=== PATIENT | female | born 1940 | race Caucasian/White ===

== ENCOUNTER 2020-01-11 09:42 | Inpatient (IN) | payer MEDICARE, OTHER ==
[~2020-01-11] VITALS: Ht 162.6 cm; Wt 51.2 kg
[2020-01-11] MEDS ORDERED: MORPHINE SULFATE 4 MG/ML, 1ML ONE ×2 (10:30→11:43)
[2020-01-11] MEDS ORDERED: ONDANSETRON 2MG/ML, 2ML ONE ×2 (10:30→19:20)
[2020-01-11] MEDS: MORPHINE SULFATE 4 MG/ML, 1ML IVPush PRN ×2 (10:42→11:49)
[2020-01-11] MEDS ORDERED: ONDANSETRON 2MG/ML, 2ML IVPush ONE (11:00)
[2020-01-11] MEDS ORDERED: SODIUM CHLORIDE FLUSH 10ML SYR IVF ONE (11:30)
--- NOTE | 2020-01-11 11:47 | NUR ---
TASK RN: PT BACK FROM XRAY. PLACED ON 2 L NC DUE TO LOW O2 DOWN TO 81%, NOW 96%.
[2020-01-11] MEDS ORDERED: ONDANSETRON 2MG/ML, 2ML IVPush PRN ×4 (12:00→22:00)
[2020-01-11] MEDS ORDERED: MORPHINE SULFATE 4 MG/ML, 1ML IVPush PRN (12:00)
[2020-01-11 12:19] LABS: BASOPHILS # (AUTO) 0.01 x10^3/uL (0-0.1); BASOPHILS % (AUTO) 0 % (0-1); EOSINOPHILS # (AUTO) 0.12 x10^3/uL (0-0.4); EOSINOPHILS % (AUTO) 1 % (1-7); LYMPHOCYTES # (AUTO) 0.89 x10^3/uL (1-3.4); LYMPHOCYTES % (AUTO) 8 % (22-44); MD NO; MEAN CORPUSCULAR HEMOGLOBIN 33.3 pg (27.0-34.8); MEAN CORPUSCULAR HGB CONC 33.5 g/dL (32.4-35.8); MEAN PLATELET VOLUME 8.1 fL (7.4-10.4); MONOCYTES # (AUTO) 0.43 x10^3/uL (0.2-0.8); MONOCYTES % (AUTO) 4 % (2-9); NEUTROPHILS # (AUTO) 9.86 x10^3/uL (1.8-6.8); NEUTROPHILS % (AUTO) 87 % (42-75); PLATELET COUNT 229 x10^3/uL (130-400); RED BLOOD COUNT 4.35 x10^6/uL (3.82-5.3)
[2020-01-11 12:25] LABS: PROTHROMBIN TIME 10.6 Seconds (9.6-11.5)
[2020-01-11 12:27] LABS: ALANINE AMINOTRANSFERASE 29 U/L (12-78); ALBUMIN 3.5 g/dL (3.4-5.0); ANION GAP 7 mmol/L (5-15); CALCIUM 9.4 mg/dL (8.5-10.1); CHLORIDE 95 mmol/L (98-107); CREATININE 0.92 mg/dL (0.55-1.02)
[2020-01-11 12:29] LABS: ALKALINE PHOSPHATASE 103 U/L (45-117); BILIRUBIN,TOTAL 0.5 mg/dL (0.2-1.0); TOTAL PROTEIN 7.9 g/dL (6.4-8.2)
[2020-01-11] MEDS ORDERED: SODIUM CHLORIDE 0.9% 1,000 ML IV ONE (12:30)
--- NOTE | 2020-01-11 12:43 | NUR ---
PURE WICK PLACED FOR PT COMFORT. PT EDUCATED ON USE. PT VERBLAIZES UNDERSTANDING.
[2020-01-11] MEDS ORDERED: NS + 40MEQ KCL 500 ML IV SCH (13:00)
[2020-01-11] MEDS ORDERED: SODIUM CHLORIDE FLUSH 10ML SYR IVF PRN (13:00)
[2020-01-11] MEDS ORDERED: POTASSIUM CHLORIDE 20 MEQ TAB.ER.PRT PO ONE (13:00)
[2020-01-11] MEDS ORDERED: POTASSIUM CHLORIDE 20 MEQ TAB.ER.PRT ONE (13:07)
[2020-01-11] MEDS ORDERED: NS + 40MEQ KCL 1,000 ML IV ONE (13:07)
[2020-01-11] MEDS ORDERED: DOCUSATE 100 MG CAPSULE PO PRN (13:30)
[2020-01-11] MEDS ORDERED: LORazepam 1MG TABLET PO PRN ×4 (13:30)
[2020-01-11] MEDS ORDERED: LORazepam 0.5MG TABLET PO PRN (13:30)
[2020-01-11] MEDS ORDERED: LORazepam 2 MG/ML, 1ML IV PRN ×5 (13:30)
[2020-01-11] MEDS ORDERED: ALBUTEROL SULFATE 2.5 MG/3 ML NPPB PRN (13:30)
[2020-01-11] MEDS ORDERED: ONDANSETRON ODT 4 MG PO PRN (13:30)
[2020-01-11] MEDS ORDERED: POLYETHYLENE GLYCOL 17 GM PACKET PO PRN (13:30)
[2020-01-11] MEDS ORDERED: ACETAMINOPHEN 325 MG TABLET PO PRN ×3 (13:30→22:00)
[2020-01-11 13:53] VITALS: BP 209/95
[2020-01-11] MEDS ORDERED: ENALAPRILAT 1.25 MG/ML, 2ML IV PRN (14:30)
[2020-01-11] MEDS ORDERED: LABETALOL 5MG/ML, 20ML IVPush PRN (14:30)
[2020-01-11 14:37] VITALS: BP 218/111
[2020-01-11] MEDS: NICOTINE 7 MG/24 HR PATCH.TD24 TD SCH (14:43)
[2020-01-11 14:56] VITALS: BP 193/91
[2020-01-11] MEDS: morphine SULFATE 10 MG/ML, 1ML IVPush PRN (15:04)
[2020-01-11 15:24] VITALS: BP 176/78
[2020-01-11] MEDS ORDERED: NS + 40MEQ KCL 1,000 ML IV SCH (16:00)
[2020-01-11 16:44] LABS: ANION GAP 7 mmol/L (5-15); CALCIUM 8.8 mg/dL (8.5-10.1); CHLORIDE 95 mmol/L (98-107); CREATININE 0.88 mg/dL (0.55-1.02)
[2020-01-11] MEDS ORDERED: MAGNESIUM SULFATE PMX 2GM/50ML 50 ML IV ONE (17:30)
[2020-01-11] MEDS ORDERED: POTASSIUM CHLORIDE 20 MEQ in SODIUM CHLORIDE 0.9% 250 ML IV ONE (17:30)
[2020-01-11 17:47] VITALS: BP 209/95
[2020-01-11] MEDS ORDERED: CARV25TA PO (18:07)
[2020-01-11] MEDS ORDERED: LOSA1TAB7 PO (18:07)
[2020-01-11] MEDS ORDERED: SIMV40TA20 PO (18:07)
[2020-01-11] MEDS ORDERED: ASPI-515 PO (18:07)
[2020-01-11] MEDS ORDERED: BUDE10.2 PO (18:07)
[2020-01-11] MEDS ORDERED: ALPR0.5T PO (18:07)
[2020-01-11] MEDS ORDERED: VENL100T PO (18:07)
[2020-01-11] MEDS ORDERED: URSO300C27 PO ×2 (18:07)
[2020-01-11] MEDS ORDERED: CHOL10003 PO (18:07)
[2020-01-11] MEDS ORDERED: FENTANYL PF 250 MCG/5ML ONE (18:24)
[2020-01-11] MEDS ORDERED: FENTANYL PF 100 MCG/2ML IV PRN (19:00)
[2020-01-11] MEDS ORDERED: hydrALAzine 20 MG/ML, 1ML IV PRN (19:00)
[2020-01-11] MEDS ORDERED: LABETALOL 5MG/ML, 20ML IV PRN (19:00)
[2020-01-11] MEDS ORDERED: EPHEDRINE 50 MG/ML, 1ML IVPush PRN (19:00)
[2020-01-11] MEDS ORDERED: OXYcodone 5 MG/5 ML ORAL.SOL UDC PO PRN (19:00)
[2020-01-11] MEDS ORDERED: HYDROmorphone 1 MG/ML, 1ML INJ IVPush PRN (19:00)
[2020-01-11] MEDS ORDERED: PROMETHAZINE 25 MG/ML, 1ML IVPush PRN (19:00)
[2020-01-11] MEDS ORDERED: CEFAZOLIN 1,000 MG ONE (19:20)
[2020-01-11] MEDS ORDERED: KETOROLAC 30 MG/1 ML ONE (19:20)
[2020-01-11] MEDS ORDERED: DEXAMETHASONE 4 MG/ML, 1ML ONE (19:20)
[2020-01-11] MEDS ORDERED: SUCCINYLCHOLINE 20 MG/ML, 10ML ONE (19:20)
[2020-01-11] MEDS ORDERED: LIDOCAINE-MPF 2% ,5ML ONE (19:20)
[2020-01-11] MEDS ORDERED: PROPOFOL 10 MG/ML, 20ML ONE (19:20)
[2020-01-11] MEDS ORDERED: EPHEDRINE 50 MG/ML, 1ML ONE (19:47)
[2020-01-11] MEDS ORDERED: FENTANYL PF 100 MCG/2ML ONE (20:11)
[2020-01-11] MEDS ORDERED: OXYcodone 5 MG/5 ML ORAL.SOL UDC ONE (20:11)
[2020-01-11] MEDS: URSODIOL 300 MG CAPSULE PO SCH (21:47)
[2020-01-11] MEDS: SIMVASTATIN 40 MG TABLET PO SCH (21:47)
[2020-01-11 23:22] VITALS: BP 102/65
[2020-01-11] MEDS: KETOROLAC 30 MG/1 ML IVPush SCH (23:48)
[2020-01-12] MEDS: CEFAZOLIN PMX 1GM/50ML 50 ML IV SCH ×3 (02:55→18:38)
[2020-01-12 03:09] VITALS: BP 133/74
[2020-01-12 05:23] LABS: BASOPHILS # (AUTO) 0.01 x10^3/uL (0-0.1); BASOPHILS % (AUTO) 0 % (0-1); EOSINOPHILS # (AUTO) 0.04 x10^3/uL (0-0.4); EOSINOPHILS % (AUTO) 0 % (1-7); LYMPHOCYTES # (AUTO) 0.41 x10^3/uL (1-3.4); LYMPHOCYTES % (AUTO) 4 % (22-44); MD NO; MEAN CORPUSCULAR HEMOGLOBIN 32.9 pg (27.0-34.8); MEAN CORPUSCULAR HGB CONC 32.5 g/dL (32.4-35.8); MEAN PLATELET VOLUME 8.4 fL (7.4-10.4); MONOCYTES # (AUTO) 0.52 x10^3/uL (0.2-0.8); MONOCYTES % (AUTO) 5 % (2-9); NEUTROPHILS # (AUTO) 9.66 x10^3/uL (1.8-6.8); NEUTROPHILS % (AUTO) 91 % (42-75); PLATELET COUNT 183 x10^3/uL (130-400); RED BLOOD COUNT 3.68 x10^6/uL (3.82-5.3); RED CELL DISTRIBUTION WIDTH 13.6 % (9.6-15.2)
[2020-01-12 05:29] LABS: ANION GAP 7 mmol/L (5-15); CALCIUM 8.6 mg/dL (8.5-10.1); CHLORIDE 100 mmol/L (98-107)
[2020-01-12 07:00] VITALS: BP 161/72
[2020-01-12] MEDS ORDERED: LACTATED RINGERS 1,000 ML IV SCH (07:00)
[2020-01-12] MEDS: CARVEDILOL 25 MG TABLET PO SCH (08:25)
[2020-01-12] MEDS: CHOLECALCIFEROL 1,000 UNIT TABLET PO SCH (08:25)
[2020-01-12] MEDS: URSODIOL 300 MG CAPSULE PO SCH ×2 (08:25→21:21)
[2020-01-12] MEDS: KETOROLAC 30 MG/1 ML IVPush SCH (08:25)
[2020-01-12] MEDS: ENOXAPARIN 40 MG/0.4 ML SQ SCH (08:26)
[2020-01-12] MEDS: LACTATED RINGERS 1,000 ML IV SCH ×2 (08:27→18:38)
[2020-01-12] MEDS: FLUTICASONE/VILANTEROL 200-25MCG/INH INH SCH (08:32)
[2020-01-12] MEDS ORDERED: HYDROCHLOROTHIAZIDE 12.5 MG CAPSULE PO SCH (09:00)
[2020-01-12] MEDS ORDERED: LOSARTAN 25MG TABLET PO SCH (09:00)
[2020-01-12 12:57] VITALS: BP 97/53
[2020-01-12] MEDS: NICOTINE 7 MG/24 HR PATCH.TD24 TD SCH (13:02)
[2020-01-12 18:52] VITALS: BP 152/78
[2020-01-12] MEDS: morphine SULFATE 10 MG/ML, 1ML IVPush PRN (20:38)
[2020-01-12] MEDS: SIMVASTATIN 40 MG TABLET PO SCH (21:19)
[2020-01-13 01:08] VITALS: BP 158/83
[2020-01-13] MEDS: morphine SULFATE 10 MG/ML, 1ML IVPush PRN (04:21)
[2020-01-13] MEDS: LACTATED RINGERS 1,000 ML IV SCH (05:16)
[2020-01-13 05:34] LABS: BASOPHILS # (AUTO) 0.03 x10^3/uL (0-0.1); BASOPHILS % (AUTO) 0 % (0-1); EOSINOPHILS # (AUTO) 0.28 x10^3/uL (0-0.4); EOSINOPHILS % (AUTO) 3 % (1-7); LYMPHOCYTES # (AUTO) 1.06 x10^3/uL (1-3.4); LYMPHOCYTES % (AUTO) 9 % (22-44); MD NO; MEAN CORPUSCULAR HEMOGLOBIN 33.1 pg (27.0-34.8); MEAN CORPUSCULAR HGB CONC 33.3 g/dL (32.4-35.8); MEAN PLATELET VOLUME 8.2 fL (7.4-10.4); MONOCYTES % (AUTO) 7 % (2-9); NEUTROPHILS # (AUTO) 9.13 x10^3/uL (1.8-6.8); NEUTROPHILS % (AUTO) 81 % (42-75); PLATELET COUNT 181 x10^3/uL (130-400); RED BLOOD COUNT 3.79 x10^6/uL (3.82-5.3); RED CELL DISTRIBUTION WIDTH 13.4 % (9.6-15.2)
[2020-01-13 05:42] LABS: ANION GAP 7 mmol/L (5-15); CALCIUM 8.7 mg/dL (8.5-10.1); CHLORIDE 94 mmol/L (98-107); CREATININE 0.79 mg/dL (0.55-1.02)
[2020-01-13 06:36] VITALS: BP 165/73
[2020-01-13] MEDS ORDERED: OXYcodone/APAP 5/325MG TABLET PO PRN (09:30)
[2020-01-13] MEDS: FLUTICASONE/VILANTEROL 200-25MCG/INH INH SCH (09:56)
[2020-01-13] MEDS: CARVEDILOL 25 MG TABLET PO SCH (09:57)
[2020-01-13] MEDS: URSODIOL 300 MG CAPSULE PO SCH ×2 (09:57→22:03)
[2020-01-13] MEDS: CHOLECALCIFEROL 1,000 UNIT TABLET PO SCH (09:57)
[2020-01-13] MEDS: ENOXAPARIN 40 MG/0.4 ML SQ SCH (09:57)
[2020-01-13] MEDS ORDERED: OXYcodone IR 5MG TABLET PO PRN (10:00)
[2020-01-13] MEDS ORDERED: ACETAMINOPHEN 325 MG TABLET PO PRN (10:00)
[2020-01-13] MEDS: LOSARTAN 25MG TABLET PO SCH (10:01)
[2020-01-13] MEDS: HYDROCHLOROTHIAZIDE 12.5 MG CAPSULE PO SCH (10:01)
[2020-01-13 12:26] VITALS: BP 144/69
[2020-01-13] MEDS: NICOTINE 7 MG/24 HR PATCH.TD24 TD SCH (14:29)
[2020-01-13 19:06] VITALS: BP 158/70
[2020-01-13] MEDS: SIMVASTATIN 40 MG TABLET PO SCH (22:03)
[2020-01-14 00:15] VITALS: BP 160/71
[2020-01-14] MEDS: FLUTICASONE/VILANTEROL 200-25MCG/INH INH SCH (07:35)
[2020-01-14] MEDS: URSODIOL 300 MG CAPSULE PO SCH (07:35)
[2020-01-14] MEDS: HYDROCHLOROTHIAZIDE 12.5 MG CAPSULE PO SCH (07:35)
[2020-01-14] MEDS: ENOXAPARIN 40 MG/0.4 ML SQ SCH (07:35)
[2020-01-14] MEDS: LOSARTAN 25MG TABLET PO SCH (07:36)
[2020-01-14] MEDS: CARVEDILOL 25 MG TABLET PO SCH (07:36)
[2020-01-14] MEDS: CHOLECALCIFEROL 1,000 UNIT TABLET PO SCH (07:36)
[2020-01-14 08:02] VITALS: BP 92/59
[2020-01-14] MEDS ORDERED: ASPI-515 PO (11:09)
[2020-01-14] MEDS ORDERED: NICO-485 TD (11:09)
[2020-01-14] MEDS ORDERED: CARV25TA12 PO (11:09)
[2020-01-14] MEDS ORDERED: OXYC5TAB3 PO (11:09)
[2020-01-14] MEDS ORDERED: LOSA1TAB7 PO (11:09)
[2020-01-14] MEDS ORDERED: ALPR0.254 PO (11:09)
[2020-01-14] MEDS ORDERED: URSO300C12 PO (11:09)
[2020-01-14 13:02] VITALS: BP 110/68
[2020-03-21] MEDS ORDERED: GABA300C PO (10:54)
[2020-03-21] MEDS ORDERED: VENL75CA6 PO (10:54)
[2020-03-21] MEDS ORDERED: VENL37.52 PO (10:54)
[2020-03-21] MEDS ORDERED: OXYC5TAB3 PO (10:54)
[2020-03-21] MEDS ORDERED: FENT1PAT74 TD (10:54)
[2020-03-21] MEDS ORDERED: LOSA25TA25 PO (11:07)
== END 2020-01-14 13:30 | DRG 469 ==
LOC: ED 11:58 → EDIP 11:59 → ED 12:22 → 4NE 13:54
PROVIDERS: ADMIT Internal Medicine; ATTEND Family Medicine
PROC: 3E0F7GC Introduction of Other Therapeutic Substance into Respiratory Tract, Via Natural or Artificial Opening (ICD-10-PCS; 2020-01-11)
PROC: 0SRS0J9 Replacement of Left Hip Joint, Femoral Surface with Synthetic Substitute, Cemented, Open Approach (ICD-10-PCS; principal; 2020-01-11 18:30)
DX: S72.002A Fracture of unspecified part of neck of left femur, initial encounter for closed fracture (principal); N17.0 Acute kidney failure with tubular necrosis; J95.821 Acute postprocedural respiratory failure; E87.1 Hypo-osmolality and hyponatremia; J98.11 Atelectasis; N99.0 Postprocedural (acute) (chronic) kidney failure; E87.6 Hypokalemia; F10.10 Alcohol abuse, uncomplicated; F17.210 Nicotine dependence, cigarettes, uncomplicated; F32.9 Major depressive disorder, single episode, unspecified; F41.1 Generalized anxiety disorder; I10 Essential (primary) hypertension; I73.9 Peripheral vascular disease, unspecified; J44.9 Chronic obstructive pulmonary disease, unspecified; K74.3 Primary biliary cirrhosis; M81.0 Age-related osteoporosis without current pathological fracture; S09.90XA Unspecified injury of head, initial encounter; Y93.01 Activity, walking, marching and hiking; W01.0XXA Fall on same level from slipping, tripping and stumbling without subsequent striking against object, initial encounter; Y92.009 Unspecified place in unspecified non-institutional (private) residence as the place of occurrence of the external cause; Z79.82 Long term (current) use of aspirin; Z85.51 Personal history of malignant neoplasm of bladder; Z86.73 Personal history of transient ischemic attack (TIA), and cerebral infarction without residual deficits; Z03.818 Encounter for observation for suspected exposure to other biological agents ruled out; Z88.2 Allergy status to sulfonamides; Z88.1 Allergy status to other antibiotic agents; Y83.8 Other surgical procedures as the cause of abnormal reaction of the patient, or of later complication, without mention of misadventure at the time of the procedure; Y92.239 Unspecified place in hospital as the place of occurrence of the external cause
CPT/HCPCS: 36415; 71045; 72190; 80048; 80053; 82306; 83735; 85025; 85610; 85730; 87635; 93005; 96374; 96375; 96376; C1713; G0378; J0690; J1100; J1650; J1885; J2405; J2704; J3010; J3480; C1762; C1776; J0330; J2270; J3475; J7050; J7120